=== PATIENT | female | born 1950 | race Caucasian/White ===

== ENCOUNTER → 2017-09-14 13:32 | Outpatient (CLI) | payer MEDICARE ==
[2015-10-04 16:12] VITALS: BMI 25.1
[~2017-09-14 13:32] MED LIST: AMBIEN10 MG PO; AUGMENTIN 875-11 TAB PO; CYMBALTA60 MG PO; ZIAC 10-6.25 MG1 TAB PO
== END | disposition home or self-care (01) ==
LOC: D.RAD 13:32
DX: M25.552 Pain in left hip (principal); M25.551 Pain in right hip

== ENCOUNTER → 2018-09-25 13:47 | Outpatient (CLI) | payer OTHER ==
[2015-10-04 16:12] VITALS: BMI 25.1
== END | disposition home or self-care (01) ==
LOC: D.MRI 13:47
PROVIDERS: ATTEND Family Medicine
DX: M54.16 Radiculopathy, lumbar region (principal)

== ENCOUNTER 2019-04-03 14:26 | Emergency (ER) | payer OTHER ==
[~2019-04-03] VITALS: Ht 157.5 cm; Wt 70.0 kg
[2019-04-03 14:34] VITALS: Ht 157.5 cm; Wt 70.0 kg
[2019-04-03] MEDS ORDERED: LISINOPRIL10 MG PO (14:37)
[2019-04-03] MEDS ORDERED: HYDROCODON-ACE1 EA10 PO (14:37)
[2019-04-03] MEDS ORDERED: PRISTIQ100 MG (14:37)
[2019-04-03] MEDS ORDERED: ZANAFLEX6 MG PO (14:38)
[2019-04-03] MEDS ORDERED: VITAMIN D5000 UNIT PO (14:39)
[2019-04-03] MEDS ORDERED: KLONOPIN0.5 MG PO (14:39)
[2019-04-03 15:03] LABS: BASOPHILS 0.2 % (0-2); EOSINOPHILS 0.6 % (0-7); HEMATOCRIT 40.9 % (36.0-48.0); HEMOGLOBIN 13.2 g/dL (12-16); IMMATURE GRANULOCYTES 0.3 % (0-5); LYMPHOCYTES 21.5 % (15-50); MCH 30.7 pg (26.0-34.0); MCHC 32.3 g/dL (31.0-37.0); MCV 95.1 fL (80.0-100.0); MEAN PLATELET VOLUME 10.6 fL (7.4-10.4); MONOCYTES 13.2 % (2-11); NEUTROPHILS 64.2 % (40-80); PLATELET COUNT 225 10x3/uL (130-400); RDW 13.3 % (11.5-14.5); WBC 10.8 10x3/uL (4.8-10.8)
[2019-04-03 15:12] LABS: ANION GAP 10.3 mmol/L (8-16); CALCIUM 9.7 mg/dL (8.5-10.1); CARBON DIOXIDE 32.7 mmol/L (21.0-32.0)
[2019-04-03 15:15] LABS: APPEARANCE CLEAR (CLEAR); BILIRUBIN NEGATIVE (NEGATIVE); COLOR YELLOW (YELLOW); GLUCOSE NEGATIVE (NEGATIVE); KETONE NEGATIVE (NEGATIVE); NITRITE NEGATIVE (NEGATIVE); PROTEIN NEGATIVE (NEGATIVE); SPECIFIC GRAVITY 1.015 (1.005-1.020); UROBILINOGEN NORMAL (NORMAL)
[2019-04-03 15:19] LABS: ALBUMIN 4.3 g/dL (3.4-5.0); BILIRUBIN - TOTAL 0.57 mg/dL (0.2-1.3); PROTEIN - SERUM 7.7 g/dL (6.4-8.2)
[2019-04-03] MEDS ORDERED: ULTRAM50 MG PO (18:20)
[2019-04-03] MEDS ORDERED: PROTONIX40 MG PO (18:20)
[2019-04-03] MEDS ORDERED: MOBIC7.5 MG PO (18:20)
[2019-04-03 19:37] VITALS: BP 179/98
== END 2019-04-03 18:50 | disposition home or self-care (01) ==
LOC: D.ER 14:26
PROVIDERS: Family Medicine
DX: M54.89 Other dorsalgia (principal); G89.29 Other chronic pain; Z76.5 Malingerer [conscious simulation]; F32.9 Major depressive disorder, single episode, unspecified; I10 Essential (primary) hypertension; Z87.442 Personal history of urinary calculi; Z98.890 Other specified postprocedural states

== ENCOUNTER 2019-11-25 18:48 | Emergency (ER) | payer OTHER ==
[~2019-11-25] VITALS: Ht 157.5 cm; Wt 68.2 kg
[~2019-11-25 18:48] MED LIST changes: +HYDROCODON-ACE1 EA10 PO; +KLONOPIN0.5 MG PO; +LISINOPRIL10 MG PO; +MOBIC7.5 MG PO; +PRISTIQ100 MG; +PROTONIX40 MG PO; +ULTRAM50 MG PO; +VITAMIN D5000 UNIT PO; +ZANAFLEX6 MG PO
[2019-11-25 19:49] VITALS: BP 203/118; Ht 157.5 cm; Wt 68.2 kg
[2019-11-25] MEDS ORDERED: PRISTIQ50 MG PO (19:50)
[2019-11-25] MEDS ORDERED: PERCOCET 10-321 EAC1 PO (19:51)
[2019-11-25] MEDS ORDERED: COZAAR50 MG PO (19:51)
[2019-11-25 20:21] LABS: BASOPHILS 0.5 % (0-2); EOSINOPHILS 3.2 % (0-7); HEMOGLOBIN 14.7 g/dL (12-16); IMMATURE GRANULOCYTES 0.2 % (0-5); LYMPHOCYTES 29.1 % (15-50); MCH 29.7 pg (26.0-34.0); MCV 92.9 fL (80.0-100.0); MEAN PLATELET VOLUME 10.2 fL (7.4-10.4); MONOCYTES 10.9 % (2-11); NEUTROPHILS 56.1 % (40-80); PLATELET COUNT 207 10x3/uL (130-400); RBC 4.95 10x6/uL (4.00-5.40); RDW 12.4 % (11.5-14.5); WBC 8.6 10x3/uL (4.8-10.8)
[2019-11-25 20:28] LABS: CALCIUM 9.4 mg/dL (8.5-10.1)
[2019-11-25 20:34] LABS: ALBUMIN 4.5 g/dL (3.4-5.0); BILIRUBIN - TOTAL 0.43 mg/dL (0.2-1.3); PROTEIN - SERUM 7.8 g/dL (6.4-8.2)
[2019-11-25] MEDS ORDERED: MOVANTIK25 MG PO (20:34)
[2019-11-25 20:40] LABS: BILIRUBIN NEGATIVE (NEGATIVE); GLUCOSE NEGATIVE (NEGATIVE); KETONE NEGATIVE (NEGATIVE); NITRITE NEGATIVE (NEGATIVE); SPECIFIC GRAVITY 1.015 (1.005-1.020); UROBILINOGEN NORMAL (NORMAL)
== END 2019-11-25 21:16 | disposition home or self-care (01) ==
LOC: D.ER 18:48
PROVIDERS: Family Medicine
DX: K59.03 Drug induced constipation (principal); T40.2X5A Adverse effect of other opioids, initial encounter; I10 Essential (primary) hypertension

== ENCOUNTER → 2019-12-31 09:28 | Outpatient (CLI) | payer OTHER ==
[2019-11-25 19:49] VITALS: BMI 27.5
[~2019-12-31 09:28] MED LIST changes: +AMBIEN5 MG PO; +COZAAR50 MG; +COZAAR50 MG PO; +FLAGYL500 MG PO; +LEVAQUIN750 MG PO; +LEVOFLOXACIN500 MG PO; +MOVANTIK25 MG PO; +PERCOCET 10-321 EAC1 PO; +PRISTIQ50 MG PO; +VITAMIN D5000 UNI1 PO
[2019-12-31 09:55] LABS: BASOPHILS 0.4 % (0-2); EOSINOPHILS 3.2 % (0-7); HEMATOCRIT 41.4 % (36.0-48.0); HEMOGLOBIN 13.1 g/dL (12-16); IMMATURE GRANULOCYTES 0.3 % (0-5); LYMPHOCYTES 25.1 % (15-50); MCH 29.2 pg (26.0-34.0); MCHC 31.6 g/dL (31.0-37.0); MCV 92.4 fL (80.0-100.0); MEAN PLATELET VOLUME 10.2 fL (7.4-10.4); MONOCYTES 13.2 % (2-11); NEUTROPHILS 57.8 % (40-80); PLATELET COUNT 206 10x3/uL (130-400); RBC 4.48 10x6/uL (4.00-5.40); RDW 12.8 % (11.5-14.5); WBC 6.8 10x3/uL (4.8-10.8)
[2019-12-31 10:05] LABS: ANION GAP 10.4 mmol/L (8-16); BILIRUBIN - TOTAL 0.51 mg/dL (0.2-1.3); CALCIUM 8.8 mg/dL (8.5-10.1); CARBON DIOXIDE 28.2 mmol/L (21.0-32.0); POTASSIUM - SERUM 3.6 mmol/L (3.5-5.1); PROTEIN - SERUM 7.2 g/dL (6.4-8.2)
[2019-12-31 10:57] LABS: ERYTHROCYTE SEDIMENTATION RATE 9 mm/hr (0-30)
== END | disposition home or self-care (01) ==
LOC: D.LAB 12-16 08:00 → D.MRI 12-16 08:00 → D.LAB 12-16 09:00 → D.MRI 09:28
PROVIDERS: ATTEND Internal Medicine Gastroenterology
DX: R93.89 Abnormal findings on diagnostic imaging of other specified body structures (principal); K83.1 Obstruction of bile duct